=== PATIENT | female | born 1965 | race Caucasian/White ===

== ENCOUNTER 2018-07-13 06:03 | Day surgery (SDC) | payer MEDICAID ==
[~2018-07-13] VITALS: Ht 157.5 cm; Wt 92.5 kg
[2018-07-13 06:49] LABS: UCG SCREEN NEGATIVE
[2018-07-13] MEDS ORDERED: BACITRACIN 50,000 UNITS/VIAL ONE (07:07)
[2018-07-13] MEDS ORDERED: LIDOCAINE HCL 1% 10 MG/ML 10ML VIAL ONE ×2 (07:07→07:20)
[2018-07-13] MEDS ORDERED: NORMAL SALINE 0.9% 10 ML SYR ONE (07:07)
[2018-07-13] MEDS ORDERED: BUPIVACAINE HCL/PF 0.5% (5MG/ML) 10ML ONE (07:07)
[2018-07-13] MEDS ORDERED: SODIUM BICARBONATE 4% (2.4MEQ) 5ML VIAL IV ONE (07:21)
[2018-07-13] MEDS ORDERED: HYDR12.529 PO (08:06)
[2018-07-13] MEDS ORDERED: FERR325T6 PO (08:06)
[2018-07-13] MEDS ORDERED: GLYCOPYRROLATE 0.2 MG/ML 2ML VIAL ONE (09:43)
[2018-07-13] MEDS ORDERED: PROPOFOL 200MG/20ML VIAL IV ONE (09:43)
[2018-07-13] MEDS ORDERED: NEOSTIGMINE METHYLSULFATE 1MG/ML 10 ML VIAL ONE (09:43)
[2018-07-13] MEDS ORDERED: MIDAZOLAM HCL 2 MG/2 ML VIAL ONE (09:43)
[2018-07-13] MEDS ORDERED: ROCURONIUM BROMIDE 10MG/ML VIAL 5ML IV ONE (09:43)
[2018-07-13] MEDS ORDERED: SKIN ADHESIVE 0.7 GM EA TOP ONE (09:43)
[2018-07-13] MEDS ORDERED: FENTANYL CITRATE/PF 50MCG/ML 5ML VIAL ONE (09:43)
[2018-07-13] MEDS ORDERED: KETOROLAC 30MG/ML VIAL ONE (09:44)
[2018-07-13] MEDS ORDERED: METOCLOPRAMIDE HCL 10MG/2ML VIAL ONE (09:44)
[2018-07-13] MEDS ORDERED: ONDANSETRON HCL 4MG/2ML INJ ONE (09:44)
[2018-07-13] MEDS ORDERED: LIDOCAINE HCL/PF 1% 10 MG/ML 5ML VIAL ONE (09:44)
[2018-07-13] MEDS ORDERED: SUCCINYLCHOLINE CHLORIDE 200MG/10ML VIAL IV ONE (09:44)
[2018-07-13] MEDS ORDERED: DEXAMETHASONE 4MG/ML 1ML VIAL ONE ×2 (09:44→10:16)
[2018-07-13] MEDS ORDERED: CEFAZOLIN SODIUM 1000MG/VIAL ONE (10:17)
== END 2018-07-13 14:00 | disposition home or self-care (01) ==
LOC: OR 06:03
PROVIDERS: ATTEND Specialist
DX: D24.1 Benign neoplasm of right breast (principal); E66.9 Obesity, unspecified; I10 Essential (primary) hypertension; D64.9 Anemia, unspecified; Z79.899 Other long term (current) drug therapy; Z68.31 Body mass index [BMI] 31.0-31.9, adult; Z98.890 Other specified postprocedural states
CPT/HCPCS: 19281; 81025; A4216; G0168; J0330; J0690; J1100; J1885; J2250; J2405; J2710; J2765; J3010; J3490; J7120; 88309; J2704